=== PATIENT | male | born 1930 | race Caucasian/White ===

== ENCOUNTER 2017-06-11 19:30 | Inpatient (IN) | payer MEDICARE ==
[~2017-06-11] VITALS: Ht 167.6 cm; Wt 97.5 kg
[2017-06-11 20:32] LABS: HEMOGLOBIN 11.3 gm/dl (14.0-17.5); RED BLOOD COUNT 3.57 M/UL (4.20-5.50); WHITE BLOOD COUNT 7.7 K/UL (4.5-11.0)
[2017-06-11] MEDS ORDERED: ELIQUIS5 MG PO (22:48)
[2017-06-11] MEDS ORDERED: CARDIZEM CD180 MG PO (22:50)
[2017-06-11] MEDS ORDERED: FENOFIBRATE160 MG PO (22:50)
[2017-06-11] MEDS ORDERED: LASIX20 MG PO (22:51)
[2017-06-11] MEDS ORDERED: FEOSOL325 MG PO (22:51)
[2017-06-11] MEDS ORDERED: LISINOPRIL10 MG PO (22:52)
[2017-06-11] MEDS ORDERED: ACTOS15 MG PO (23:03)
[2017-06-11] MEDS ORDERED: K-DUR TAB 10 M10 MEQ PO (23:08)
[2017-06-11] MEDS ORDERED: JANUVIA50 MG PO (23:08)
[2017-06-12 02:36] LABS: HEMOGLOBIN 10.8 gm/dl (14.0-17.5); RED BLOOD COUNT 3.37 M/UL (4.20-5.50); WHITE BLOOD COUNT 8.1 K/UL (4.5-11.0)
[2017-06-12] MEDS ORDERED: JANUVIA100 MG PO (10:03)
[2017-06-12] MEDS ORDERED: FERROUS SULFAT325 MG PO (10:04)
[2017-06-12] MEDS ORDERED: LASIX TAB 20 MG20 MG PO (10:05)
[2017-06-12] MEDS ORDERED: ASPIRIN EC81 MG PO (10:05)
[2017-06-13 04:20] LABS: HEMOGLOBIN 10.6 gm/dl (14.0-17.5); RED BLOOD COUNT 3.35 M/UL (4.20-5.50); WHITE BLOOD COUNT 7.7 K/UL (4.5-11.0)
--- NOTE | 2017-06-13 13:25 | NUR ---
06/13/17 12:10 PRE PACEMAKER SCRUB AND CLIP AND PREP DONE. 1230 BACTROBAN TO BRUNO 1230 PERMIT SIGNED 06/13/17 1320 TO ESCROW PROCESSOR FOR PERMENANT PACER PER STRETCHER
--- NOTE | 2017-06-13 15:43 | NUR ---
06/13/17 1520 RETURNED FROM STRIPPER APPRENTICE S/P PERMENANT PACEMAKER. A/OX3 DENIES ANY PAIN, DRSG CLEAN AND DRY, SLING/SWATH IN PLACE. +PERIPHERAL PULSES ON LEFT ARM.
[2017-06-14 04:17] LABS: RED BLOOD COUNT 3.43 M/UL (4.20-5.50)
[2017-06-15 06:18] LABS: HEMOGLOBIN 11.6 gm/dl (14.0-17.5); RED BLOOD COUNT 3.58 M/UL (4.20-5.50); WHITE BLOOD COUNT 9.2 K/UL (4.5-11.0)
== END 2017-06-15 16:10 | disposition home or self-care (01) | DRG 242 ==
LOC: ER1 19:30 → PROG CARE 21:29 → ZEROF 21:29 → PROG CARE 22:45 → MED SURG 4 06-14 09:53
PROVIDERS: Family Medicine; Physician Assistant; ADMIT Family Medicine
PROC: 02HK3JZ Insertion of Pacemaker Lead into Right Ventricle, Percutaneous Approach (ICD-10-PCS; principal; 2017-06-13)
PROC: 02H63JZ Insertion of Pacemaker Lead into Right Atrium, Percutaneous Approach (ICD-10-PCS; principal; 2017-06-13)
PROC: 0JH606Z Insertion of Pacemaker, Dual Chamber into Chest Subcutaneous Tissue and Fascia, Open Approach (ICD-10-PCS; principal; 2017-06-13)
DX: I49.5 Sick sinus syndrome (principal); I50.43 Acute on chronic combined systolic (congestive) and diastolic (congestive) heart failure; N17.9 Acute kidney failure, unspecified; I13.0 Hypertensive heart and chronic kidney disease with heart failure and stage 1 through stage 4 chronic kidney disease, or unspecified chronic kidney disease; J98.11 Atelectasis; I47.1 Supraventricular tachycardia; T46.1X1A Poisoning by calcium-channel blockers, accidental (unintentional), initial encounter; I35.0 Nonrheumatic aortic (valve) stenosis; N18.9 Chronic kidney disease, unspecified; E11.22 Type 2 diabetes mellitus with diabetic chronic kidney disease; D64.9 Anemia, unspecified; I48.2 Chronic atrial fibrillation; H91.90 Unspecified hearing loss, unspecified ear; E66.9 Obesity, unspecified; M79.604 Pain in right leg; Z72.3 Lack of physical exercise; Z91.81 History of falling; S80.812A Abrasion, left lower leg, initial encounter; W18.30XA Fall on same level, unspecified, initial encounter; Y93.9 Activity, unspecified; Y92.009 Unspecified place in unspecified non-institutional (private) residence as the place of occurrence of the external cause; Z82.49 Family history of ischemic heart disease and other diseases of the circulatory system; Z79.82 Long term (current) use of aspirin; Z79.899 Other long term (current) drug therapy
CPT/HCPCS: ECHO; 33208; 36415; 71010; 73502; 73562; 80048; 80053; 81001; 82043; 82550; 82553; 82570; 82962; 83036; 83735; 83880; 84300; 84439; 84443; 84484; 85025; 85027; 87086; 93005; 93306; 99152; 99153; 99284; C1785; C1898; J0461; J0690; J1644; J2250; J2405; J3010; J3370; J7040; Q9963; Q9965